=== PATIENT | female | born 1975 ===

== ENCOUNTER 2019-07-21 15:48 | Emergency (ER) | payer OTHER, SELFPAY ==
[2019-07-21 16:02] VITALS: BP 125/83; PULSE 79; RESP 16; TEMP 36.9; O2SAT 98
--- NOTE | 2019-07-21 16:17 | ED.EAR ---
HPI - Ear Problem General Chief complaint: Ear Stated complaint: ear Time Seen by Provider: 07/21/19 16:04 Source: patient and RN notes reviewed Mode of arrival: ambulatory Limitations: no limitations History of Present Illness HPI Narrative: Patient presents today complaining of right ear pain since yesterday with swelling to the right neck as well with sore throat with swallowing. Denies drainage from the ear or decreased hearing. Denies any cough, congestion, rhinorrhea. Currently rates her pain 3/10 and has taken no medication for symptoms prior to arrival. MD Complaint: ear pain Related Data Home Medications Medication Instructions Recorded Confirmed No Home Medications 07/21/19 07/21/19 Allergies Allergy/AdvReac Type Severity Reaction Status Date / Time Sulfa (Sulfonamide Allergy Unknown Verified 10/30/15 15:49 Antibiotics) Review of Systems Review of Systems: Narrative: CONSTITUTIONAL: Denies body aches, fever, chills, or sweats. EYES: Denies visual changes, redness, or discharge. ENT: Denies rhinorrhea, congestion, sore throat. + Right ear pain, sore throat, right CARDIOVASCULAR: Denies chest pain, palpitations, or edema. RESPIRATORY: Denies cough or dyspnea. GASTROINTESTINAL: Denies abdominal pain, nausea, vomiting, or diarrhea. GENITOURINARY: Denies dysuria or hematuria. SKIN: Denies rash, itching, or wounds. MUSCULOSKELETAL: Denies back pain, joint pain, or myalgia. NEUROLOGIC: Denies headache, numbness, tingling, or weakness. PSYCH: Denies depression or anxiety. PMFSH Social History Social History Smoking status: Never smoker Alcohol intake: never Comments At time of signature, I have reviewed and agree with nursing past medical, surgical, social and family history unless otherwise noted. Please see nursing chart for further information. There is no relevant family history pertinent to the presenting complaint Exam Narrative: Exam Narrative: GENERAL: Well-appearing, well-nourished, and in no acute distress. HEAD: Normocephalic, atraumatic. EYES: EOMI. No redness or drainage. Conjunctivae normal. ENT: Mucous membranes pink and moist. Nares clear. No rhinorrhea. Left TM normal. Right TM erythematous and bulging. Throat normal. Uvula midline. NECK: Normal AROM. Supple. Right anterior cervical chain lymphadenopathy. CHEST: No respiratory distress. Clear to auscultation. HEART: Regular rate and rhythm. No murmur appreciated. Normal peripheral pulses. EXTREMITIES: Normal range of motion. No edema. SKIN: Warm, dry, no rash. Capillary refill normal. Normal skin turgor. NEURO: No focal deficits. Alert and oriented x3. Gait steady. PSYCH: Normal affect. No signs of depression or anxiety. Course Vital Signs Vital signs: Vital Signs Temperature 98.4 F 07/21/19 16:02 Pulse Rate 79 07/21/19 16:02 Respiratory Rate 16 07/21/19 16:02 Blood Pressure 125/83 07/21/19 16:02 Pulse Oximetry 98 07/21/19 16:02 Temperature 98.4 F 07/21/19 16:02 Pulse Rate 79 07/21/19 16:02 Respiratory Rate 16 07/21/19 16:02 Blood Pressure 125/83 07/21/19 16:02 Pulse Oximetry 98 07/21/19 16:02 Reviewed. Pt has been instructed to follow up with her PCP regarding her elevated blood pressure today. Medical Decision Making Differential Diagnosis Differential Diagnosis: Otitis media, otitis externa, ruptured TM, serous otitis, eustachian tube dysfunction, pharyngitis, tonsillitis, lymphadenopathy Vital Signs Vital Signs: Vital Signs Temperature 98.4 F 07/21/19 16:02 Pulse Rate 79 07/21/19 16:02 Respiratory Rate 16 07/21/19 16:02 Blood Pressure 125/83 07/21/19 16:02 Pulse Oximetry 98 07/21/19 16:02 Temperature 98.4 F 07/21/19 16:02 Pulse Rate 79 07/21/19 16:02 Respiratory Rate 16 07/21/19 16:02 Blood Pressure 125/83 07/21/19 16:02 Pulse Oximetry 98 07/21/19 16:02 Critical Care Time Critical Care Time Critical Care Time: No
== END 2019-07-21 16:36 | disposition home or self-care (01) ==
PROVIDERS: Emergency Provider Nurse Practitioner
DX: H66.91 Otitis media, unspecified, right ear (principal); I88.9 Nonspecific lymphadenitis, unspecified
CPT/HCPCS: 99213; G0463